=== PATIENT | female | born 1955 | race Caucasian/White ===

== ENCOUNTER 2018-08-16 00:08 | Outpatient (CLI) | payer BC, SELFPAY ==
[2018-08-16 10:29] LABS: Anion Gap 10.1 mmol/L (3-11); BUN 15 mg/dL (7-18); CO2 29.9 mmol/L (21.0-32.0); CREATININE 0.81 mg/dL (0.55-1.02); Chloride 104 mmol/L (98-107); Cholesterol 150 mg/dL (50-200); Glucose 95 mg/dL (70-100); HDL Cholesterol 43 mg/dL (40-60); LDL CHOLESTEROL 91 mg/dL (<100); Potassium 3.5 mmol/L (3.5-5.1); Sodium 144 mmol/L (136-145); Triglyceride 86 mg/dL (30-150)
== END 2018-08-16 00:28 ==
PROVIDERS: PCP Family Medicine; Visit Provider Family Medicine
DX: I10 Essential (primary) hypertension (principal)
CPT/HCPCS: 36415; 80048; 80061; 83721

== ENCOUNTER 2018-10-07 11:55 | Outpatient (CLI) | payer BC, SELFPAY ==
--- NOTE | 2018-10-07 12:02 | DI.RAD_ITS ---
SYMPTOMS/DIAGNOSIS: PAIN IN LT THUMB, M79.850 LEFT THUMB: The bony structures are normally mineralized. There is no evidence of a fracture or dislocation. Degenerative changes involving the interphalangeal joints are apparent. There are no periarticular erosions or soft tissue calcifications. SUMMARY: Degenerative changes as described above.
== END 2018-10-07 12:15 ==
PROVIDERS: PCP Family Medicine; Visit Provider Family Medicine
DX: M79.645 Pain in left finger(s) (principal); M19.042 Primary osteoarthritis, left hand
CPT/HCPCS: 73140

== ENCOUNTER 2018-11-07 09:38 | Outpatient (CLI) | payer BC, SELFPAY ==
--- NOTE | 2018-11-07 09:15 | DI.RAD_ITS ---
SYMPTOM/DIAGNOSIS: COUGH,R05,FATIGUE,R53.83 PA AND LATERAL CHEST: The heart is at the upper limits of normal in size to mildly enlarged. Lungs are clear and well expanded. No pleural effusion is seen. On the lateral film, note is made of increased prominence of a vaguely nodular or mass-like radiodensity projected at the inferior hilar region. This was not present on examination of 10/29/09. On the frontal film, there is question of increased prominence of the inferior right hilum noted as well. CONCLUSION: 1. Borderline cardiomegaly. 2. Question new right infrahilar mass. Chest CT requested for further evaluation.
[2018-11-07 10:10] LABS: Abs Immature Grans 0.01 k/cumm (0.0-0.09); Absolute Basophil Count 0.03 k/cumm (0.0-0.2); Absolute Eosinophil Count 0.13 k/cumm (0.0-0.7); Absolute Lymphocyte Count 0.84 k/cumm (1.2-3.4); Absolute Monocyte Count 0.87 k/cumm (0.11-0.7); Absolute Neutrophil Count 6.14 k/cumm (1.2-6.7); Basophils % 0.4; Eosinophils % 1.6; HCT 35.5 % (36.0-46.0); HGB 11.7 g/dL (12.0-15.5); Immature Grans % 0.1; Lymphocytes % 10.5; Mean Corpuscular Hemoglobin 27.5 pg (27.0-33.0); Mean Corpuscular Volume 83.3 fL (80-95); Mean Platelet Volume 10.6 fL (8.0-11.0); Monocytes % 10.8; Neutrophils % 76.6; Platelet Count 212 x1000/uL (130-400); RBC 4.26 m/cumm (4.00-5.20); RBC Distribution Width 14.3 % (11.7-14.6); White Blood Cell Count 8.02 k/cumm (4.4-10.8)
[2018-11-07 11:06] LABS: ALT 31 U/L (12-78); AST 19 U/L (15-37); Albumin 3.6 g/dL (3.4-5.0); Alkaline Phosphatase 98 U/L (46-116); Anion Gap 8.6 mmol/L (3-11); BUN 13 mg/dL (7-18); Bilirubin, Total 0.7 mg/dL (0.2-1.0); CO2 29.4 mmol/L (21.0-32.0); CREATININE 0.75 mg/dL (0.55-1.02); Chloride 101 mmol/L (98-107); Glucose 95 mg/dL (70-100); Potassium 3.6 mmol/L (3.5-5.1); Sodium 139 mmol/L (136-145); TSH 3.98 uIU/mL (0.358-3.74); Total Protein 7.1 g/dL (6.4-8.2)
== END 2018-11-07 09:58 ==
PROVIDERS: PCP Family Medicine; Visit Provider Family Medicine
DX: R05 Cough (principal); R53.83 Other fatigue; R50.9 Fever, unspecified; I51.7 Cardiomegaly; R91.8 Other nonspecific abnormal finding of lung field
CPT/HCPCS: 36415; 80053; 71046; 84443; 85025

== ENCOUNTER 2018-11-09 10:03 | Outpatient (CLI) | payer BC, SELFPAY ==
[2018-11-10 16:07] LABS: T3,Free 3.7 pg/ml (2.8-5.3)
== END 2018-11-09 10:23 ==
PROVIDERS: PCP Family Medicine; Visit Provider Family Medicine
DX: R79.89 Other specified abnormal findings of blood chemistry (principal); I10 Essential (primary) hypertension
CPT/HCPCS: 36415; 84481

== ENCOUNTER 2018-11-11 01:34 | Outpatient (CLI) | payer BC, SELFPAY ==
--- NOTE | 2018-11-11 13:33 | DI.CT_ITS ---
SYMPTOMS/DIAGNOSIS: POSSIBLE MASS SEEN ON CHEST FILM, ABNORMAL CHEST X-RAY, R93.89 CT SCAN OF THE CHEST: CT scan of the chest was performed following the uneventful administration of intravenous contrast material. Comparison chest x-ray is 11/07/18. Comparison chest x-ray is 11/07/18. The thoracic aorta is of normal caliber with mild atherosclerosis. The heart size is within normal limits. No significant pericardial effusion is seen. No significant thoracic adenopathy, pleural effusion or pneumothorax is identified. The thyroid gland is unremarkable. There is scarring seen in the right middle lobe. No pulmonary nodule or infiltrate is identified. The tracheobronchial tree is unremarkable. Upper abdominal images show a 1.8 cm left adrenal nodule with internal density consistent with fat. This most likely reflects an adenoma. There are degenerative changes seen in the spine. IMPRESSION: 1. No evidence of a pulmonary mass or thoracic adenopathy. 2. Scarring in the right middle lobe. 3. A 1.8 cm left adrenal nodule with fat density internally, most likely reflecting an adrenal adenoma. Followup as clinically appropriate.
[2018-11-11] MEDS: Omnipaque 350 MG/ML 100 ML BTL IJ (14:45)
== END 2018-11-11 01:54 ==
PROVIDERS: PCP Family Medicine; Visit Provider Family Medicine
DX: R93.89 Abnormal findings on diagnostic imaging of other specified body structures (principal); J98.4 Other disorders of lung; E27.8 Other specified disorders of adrenal gland
CPT/HCPCS: 71260; J3490

== ENCOUNTER 2020-02-09 00:58 | Outpatient (CLI) | payer BC, SELFPAY ==
--- NOTE | 2020-02-09 06:10 | DI.RAD_ITS ---
EXAM: XR KNEE LT 3V AP,LAT,NELLY CLINICAL HISTORY: intermittent pain/no trauma,M25.562 TECHNIQUE: COMPARISON: CR RIGHT KNEE COMPLETE from 08/10/2008 FINDINGS: Four views were obtained. There is moderate narrowing of the medial tibiofemoral cartilaginous joint space. There are mild marginal osteophytes seen at all 3 joints of the knee. There may be a small knee joint effusion. 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
== END 2020-02-09 01:18 ==
PROVIDERS: Visit Provider Family Medicine
DX: M17.12 Unilateral primary osteoarthritis, left knee (principal); M25.762 Osteophyte, left knee
CPT/HCPCS: 73562

== ENCOUNTER 2020-07-26 08:48 | Outpatient (CLI) | payer BC, SELFPAY ==
[2020-07-27 17:19] LABS: COVID-19 RT-PCR UVMMC Result Negative (Negative)
== END 2020-07-26 09:08 ==
DX: Z11.52 Encounter for screening for COVID-19 (principal)
CPT/HCPCS: U0003

== ENCOUNTER 2020-09-27 03:48 | Outpatient (CLI) | payer BC, SELFPAY ==
[2020-09-27 07:45] LABS: HCT 33.2 % (36.0-46.0); HGB 10.8 g/dL (11.2-15.7)
[2020-09-27 08:50] LABS: ALT 27 U/L (14-59); AST 15 U/L (15-37); Albumin 3.2 g/dL (3.4-5.0); Alkaline Phosphatase 89 U/L (46-116); Anion Gap 12.3 mmol/L (3-11); BUN 20 mg/dL (7-18); Bilirubin, Total 0.8 mg/dL (0.2-1.0); CO2 28.7 mmol/L (21.0-32.0); Calcium 8.6 mg/dL (8.5-10.1); Chloride 104 mmol/L (98-107); Estimated GFR 55.47 (mL/min/1.73m2); Glucose 92 mg/dL (74-106); Potassium 3.3 mmol/L (3.5-5.1); Sodium 145 mmol/L (136-145)
== END 2020-09-27 03:49 | disposition home or self-care (01) ==
LOC: LBO 03:48
DX: Z00.00 Encounter for general adult medical examination without abnormal findings (principal); D64.9 Anemia, unspecified
CPT/HCPCS: 36415; 80053; 85014; 85018

== ENCOUNTER 2020-09-30 10:31 | Outpatient (CLI) | payer BC, SELFPAY ==
[2020-09-30 15:08] LABS: Iron 42 ug/dL (50-170)
[2020-09-30 15:21] LABS: Ferritin 142 ng/mL (8-252); TSH (W/Ref FT4) 4.33 uIU/mL (0.36-3.74)
[2020-09-30 20:21] LABS: FREE T4 1.09 ng/dL (0.76-1.46)
== END 2020-09-30 10:32 | disposition home or self-care (01) ==
LOC: LBO 10:34
DX: D64.9 Anemia, unspecified (principal); R53.83 Other fatigue; G47.00 Insomnia, unspecified
CPT/HCPCS: 36415; 82728; 83540; 84439; 84443